=== PATIENT | male | born 1960 | race Caucasian/White ===

== ENCOUNTER 2017-03-12 00:31 | Emergency (ER) | payer MEDICAID ==
[~2017-03-12] VITALS: Ht 170.2 cm; Wt 70.6 kg
[2017-03-12 00:40] VITALS: Ht 170.2 cm; Wt 70.6 kg
--- NOTE | 2017-03-12 01:25 | ERD ---
ER Documentation Chief Complaint Chief Complaint Palpitation HPI The patient is a 56-year-old male, presenting to the ER because of palpitation and dyspnea about 20 minutes prior to arrival around 1 AM. He denies similar symptoms previously, his chest pain with exertion/vomiting/diaphoresis, abdominal pain, vomiting, dysuria, diarrhea. He does not smoke nor drink Medical history: Diabetes mellitus, dyslipidemia Past surgical history: None ROS All systems reviewed and are negative except as per history of present illness. Medications Home Meds Reported Medications Metformin* (Glucophage*) 500 Mg Tab, 500 MG PO WITH BREAKFAST DINNE, #30 TAB 03/12/17 Glipizide* (Glipizide*) 5 Mg Tablet, 5 MG PO DAILY, TAB 03/12/17 Discontinued Reported Medications [None] No Conflict Check 03/25/09 Allergies Allergies: Coded Allergies: No Known Allergy (Unverified , 03/12/17) PMhx/Soc History of Surgery: No Hx Neurological Disorder: No Hx Respiratory Disorders: No Hx Cardiac Disorders: No Hx Miscellaneous Medical Probl: No Hx Alcohol Use: No Hx Substance Use: No Hx Tobacco Use: No Physical Exam Vitals Vital Signs Date Time Temp Pulse Resp B/P Pulse Ox O2 Delivery O2 Flow Rate FiO2 03/12/17 05:16 86 16 142/85 99 Room Air 03/12/17 02:10 99 16 154/99 100 Room Air 03/12/17 00:40 98.2 100 20 188/102 99 Physical Exam Const: No acute distress. Head: Atraumatic. Eyes: Normal Conjunctiva. ENT: Normal External Ears, Nose and Mouth. Neck: Full range of motion. No meningismus. Resp: Clear to auscultation bilaterally. Cardio: Regular rate and rhythm. Abd: Soft, non distended, normal bowel sounds, non tender. Skin: No petechiae or rashes. Back: No midline or flank tenderness. Ext: No cyanosis, or edema. Neur: Awake and alert. No focal deficit Psych: Normal Mood and Affect. Result Diagram: 03/12/17 0150 03/12/17 0150 Results 24 hrs Laboratory Tests Test 03/12/17 01:50 03/12/17 05:21 White Blood Count 7.110^3/ul Red Blood Count 4.7010^6/ul Hemoglobin 14.7g/dl Hematocrit 42.0% Mean Corpuscular Volume 89.4fl Mean Corpuscular Hemoglobin 31.3pg Mean Corpuscular Hemoglobin Concent 35.0g/dl Red Cell Distribution Width 11.5% Platelet Count 52069^3/UL Mean Platelet Volume 11.5fl Neutrophils % 55.8% Lymphocytes % 34.0% Monocytes % 8.9% Eosinophils % 0.6% Basophils % 0.3% Nucleated Red Blood Cells % 0.0/100WBC Neutrophils # 3.910^3/ul Lymphocytes # 2.410^3/ul Monocytes # 0.610^3/ul Eosinophils # 0.010^3/ul Basophils # 0.010^3/ul Nucleated Red Blood Cells # 0.010^3/ul D-Dimer 320.75ng/ml D-Dimer Comment Sodium Level 132mmol/L Potassium Level 3.9mmol/L Chloride Level 92mmol/L Carbon Dioxide Level 27mmol/L Anion Gap 17 Blood Urea Nitrogen 18mg/dl Creatinine 0.92mg/dl Glucose Level 701mg/dl Calcium Level 9.5mg/dl Troponin I < 0.012ng/ml Bedside Glucose 255mg/dL Current Medications Medications (Trade) Dose Ordered Sig/Beto Route PRN Reason Start Time Stop Time Status Last Admin Dose Admin Sodium Chloride 1,000 ml @ 1,000 mls/hr Q1H ONCE IV 03/12/17 04:00 03/12/17 04:59 DC 03/12/17 04:27 Sodium Chloride (NS) 1,000 ml @ 1,000 mls/hr Q1H ONCE IV 03/12/17 04:00 03/12/17 04:59 DC 03/12/17 04:27 Insulin Human Lispro (Humalog) 22 unit ONCE ONCE SC 03/12/17 03:53 03/12/17 03:54 DC 03/12/17 04:30 Procedures/[place] [address] Radiology Main Line: [phone] DIAGNOSTIC IMAGING REPORT Patient: JAYDEN MORIN : 1960 Age: 56 Sex: M MR #: [id number] DOS: 03/12/17 0137 Ordering MD: ANTIA SOTO MD Location: E/R Room/Bed: PROCEDURE: XR Chest. CLINICAL INDICATION: Chest pain TECHNIQUE: Single frontal view of the chest COMPARISON: 03/25/2009 FINDINGS: The cardiomediastinal silhouette is within normal limits. Tortuous thoracic aorta. The lungs are clear. No signs of pleural fluid or pneumothorax are seen. The osseous structures and soft tissues are unremarkable. IMPRESSION: No evidence for active cardiopulmonary disease. RPTAT: [facility] [place] Date Time Electronically viewed and signed by Heron Pena Physician on 03/12/2017 02:13 RS/ CC: ANITA SOTO MD EKG: Read by emergency physician Rate/Rhythm: Sinus Tachycardia 112 beats/min QRS, ST, T-waves: No ST elevation, no T inversion Impression: Abnormal EKG MEDICAL MAKING DECISION: The patient is a 56-year-old male, presenting with acute diabetic hyperglycemia, he was treated with 2 L normal saline and Humalog 22 units subcu for acute diabetic hyperglycemia with good response, his blood glucose improved. He is stable for outpatient follow-up The differential diagnoses considered include but are not limited to medical noncompliance, dehydration,HHS, DKA MEDICAL MAKING DECISION: Departure Diagnosis: Primary Impression: DM type 2 with diabetic mixed hyperlipidemia Condition: Good Comments The patient's blood pressure was elevated (>120/80) but appears stable without evidence of hypertension emergency or urgency. The patient was counseled about the risks of hypertension and urged to pursue outpatient monitoring and therapy within a week with their primary care physician. I discussed the findings with the patient. I advised the patient to follow-up with the primary physician in about 1-2 days, sooner if needed and return if any concern. Disclaimer: Inadvertent spelling and grammatical errors are likely due to EHR/ dictation software use and do not reflect on the overall quality of patient care. Also, please note that the electronic time recorded on this note does not necessarily reflect the actual time of the patient encounter. ANITA SOTO MD Mar 12, 2017 01:24
--- NOTE | 2017-03-12 02:13 | RADRPT ---
PROCEDURE: XR Chest. CLINICAL INDICATION: Chest pain TECHNIQUE: Single frontal view of the chest COMPARISON: 03/25/2009 FINDINGS: The cardiomediastinal silhouette is within normal limits. Tortuous thoracic aorta. The lungs are zeyad ar. No signs of pleural fluid or pneumothorax are seen. The osseous structures and soft tissues are unremarkable. IMPRESSION: No evidence for active cardiopulmonary disease. RPTAT: [facility] [place] Date Time Electronically viewed and signed by Heron Pena Physician on 03/12/2017 02:13 RS/
[2017-03-12 02:24] LABS: BASOPHILS % 0.3 % (0.0-2.0); EOSINOPHILS % 0.6 % (0.0-7.0); HEMOGLOBIN 14.7 g/dl (14.0-18.0); LYMPHOCYTES # 2.4 10^3/ul (0.8-2.9); MEAN CORPUSCULAR HEMOGLOBIN 31.3 pg (29.0-33.0); MEAN CORPUSCULAR VOLUME 89.4 fl (82.0-101.0); MEAN PLATELET VOLUME 11.5 fl (7.4-10.4); MONOCYTE # 0.6 10^3/ul (0.3-0.9); MONOCYTES % 8.9 % (0.0-11.0); NEUTROPHIL # 3.9 10^3/ul (1.6-7.5); NEUTROPHILS % 55.8 % (39.0-77.0); PLATELET COUNT 150 10^3/UL (140-415); RED CELL DISTRIBUTION WIDTH 11.5 % (11.5-14.5); WHITE BLOOD COUNT 7.1 10^3/ul (4.8-10.8)
[2017-03-12 02:41] LABS: ANION GAP 17 (8-16); BLOOD UREA NITROGEN 18 mg/dl (7-20); CALCIUM 9.5 mg/dl (8.4-10.2); CARBON DIOXIDE 27 mmol/L (21-31); CHLORIDE 92 mmol/L (97-110); CREATININE 0.92 mg/dl (0.61-1.24); POTASSIUM 3.9 mmol/L (3.5-5.1); SODIUM 132 mmol/L (135-144)
[2017-03-12 02:43] LABS: D-DIMER 320.75 ng/ml (<460)
[2017-03-12 02:49] LABS: GLUCOSE 701 mg/dl (70-220)
[2017-03-12 02:54] LABS: TROPONIN-I < 0.012 ng/ml (0.00-0.12)
[2017-03-12] MEDS ORDERED: INSULIN LISPRO 100 UNIT/ML VIAL SC ONE (03:53)
[2017-03-12] MEDS ORDERED: SOD CHLORIDE 0.9% 1,000 ML IV ONE ×2 (04:00)
[2017-03-12] MEDS ORDERED: GLIP5TAB13 PO (04:17)
[2017-03-12] MEDS ORDERED: METF500T4 PO (04:17)
[2017-03-12 05:16] VITALS: BP 142/85; PULSE 86; RESP 16
== END 2017-03-12 05:44 | disposition home or self-care (01) ==
LOC: E/R 00:31
DX: E11.69 Type 2 diabetes mellitus with other specified complication (principal); E78.2 Mixed hyperlipidemia; Z79.84 Long term (current) use of oral hypoglycemic drugs
CPT/HCPCS: 36415; 71010; 80048; 82962; 84484; 85025; 85378; 96372; J1815; J7030; Z7502; 93005

== ENCOUNTER → 2017-04-17 | Emergency (ER) | END | disposition home or self-care (01) ==

== ENCOUNTER 2018-02-16 14:56 | Emergency (ER) | END 2018-02-16 18:47 | disposition home or self-care (01) ==

== ENCOUNTER 2018-04-15 08:36 | Emergency (ER) | payer MEDICAID ==
[~2018-04-15] VITALS: Wt 70.0 kg
[~2018-04-15 08:36] MED LIST: GLIP5TAB13 PO; METF-849 PO; RANI150T35 PO
[2018-04-15 08:39] VITALS: BP 149/76; PULSE 80; RESP 18
[2018-04-15] MEDS ORDERED: SOD CHLORIDE 0.9% 1,000 ML IV STA (09:46)
[2018-04-15] MEDS ORDERED: INSULIN LISPRO 100 UNIT/ML VIAL SC ONE (10:00)
[2018-04-15] MEDS ORDERED: MTF1000T PO (10:35)
--- NOTE | 2018-04-15 10:38 | ERD ---
ER Documentation Chief Complaint Chief Complaint per pt swelling feet/legs x 1 week HPI 57-year-old male presents with complaints of swelling in his lower extremities for the last week. Denies any history of trauma, shortness of breath, hemoptysis, syncope. Patient does walk a lot at work. Patient initially states that he did not have other medical conditions although further history later in visit shows that he has diabetes and takes Glucophage 500 mg twice a day. ROS All systems reviewed and are negative except as per history of present illness. Medications Home Meds Active Scripts Metformin* (Glucophage*) 1,000 Mg Tablet, 1000 MG PO BID, #60 TAB Prov:BRETT JOHNSON MD 04/15/18 Ranitidine Hcl* (Zantac*) 150 Mg Tablet, 150 MG PO BID PRN for EPIGASTRIC PAIN, #30 TAB Prov:RENEE CABALLERO MD 02/16/18 Glipizide* (Glipizide*) 5 Mg Tablet, 5 MG PO AC BREAKFAST, #30 TAB Prov:RENEE CABALLERO MD 02/16/18 Metformin* (Glucophage*) 500 Mg Tab, 500 MG PO BID, #60 TAB Prov:RENEE CABALLERO MD 02/16/18 Reported Medications Metformin* (Glucophage*) 500 Mg Tab, 500 MG PO WITH BREAKFAST DINNE, #30 TAB 03/12/17 Glipizide* (Glipizide*) 5 Mg Tablet, 5 MG PO DAILY, TAB 03/12/17 Allergies Allergies: Coded Allergies: No Known Allergy (Unverified , 04/15/18) PMhx/Soc Medical and Surgical Hx: pt denies Surgical Hx History of Surgery: No Anesthesia Reaction: No Hx Neurological Disorder: No Hx Respiratory Disorders: No Hx Cardiac Disorders: No Hx Psychiatric Problems: No Hx Miscellaneous Medical Probl: Yes (DM) Hx Alcohol Use: No Hx Substance Use: No Hx Tobacco Use: No Smoking Status: Never smoker FmHx Family History: No diabetes, No coronary disease, No other Physical Exam Vitals Vital Signs Date Temp Pulse Resp B/P (MAP) Pulse Ox O2 O2 Flow FiO2 Time Delivery Rate 04/15/18 98.1 80 18 149/76 99 08:39 (100) Physical Exam Const: No acute distress Head: Atraumatic Eyes: Normal Conjunctiva ENT: Normal External Ears, Nose and Mouth. Neck: Full range of motion. No meningismus. No JVD Resp: Clear to auscultation bilaterally. No rales. Cardio: Regular rate and rhythm, no murmurs Abd: Soft, non tender, non distended. Normal bowel sounds Skin: No petechiae or rashes Back: No midline or flank tenderness Ext: No cyanosis, or edema. No significant edema identified per patient chief complaint. No calf swelling or Homans sign. Neur: Awake and alert Psych: Normal Mood and Affect Result Diagram: 04/15/18 0908 04/15/18 0908 Results 24 hrs Laboratory Tests Test 04/15/18 09:08 04/15/18 10:05 White Blood Count 4.8 10^3/ul Red Blood Count 4.53 10^6/ul Hemoglobin 14.0 g/dl Hematocrit 40.6 % Mean Corpuscular Volume 89.6 fl Mean Corpuscular Hemoglobin 30.9 pg Mean Corpuscular Hemoglobin Concent 34.5 g/dl Red Cell Distribution Width 11.9 % Platelet Count 142 10^3/UL Mean Platelet Volume 11.3 fl Immature Granulocytes % 0.600 % Neutrophils % 48.4 % Lymphocytes % 42.1 % Monocytes % 7.9 % Eosinophils % 0.6 % Basophils % 0.4 % Nucleated Red Blood Cells % 0.0 /100WBC Immature Granulocytes # 0.030 10^3/ul Neutrophils # 2.3 10^3/ul Lymphocytes # 2.0 10^3/ul Monocytes # 0.4 10^3/ul Eosinophils # 0.0 10^3/ul Basophils # 0.0 10^3/ul Nucleated Red Blood Cells # 0.0 10^3/ul Sodium Level 137 mmol/L Potassium Level 4.3 mmol/L Chloride Level 97 mmol/L Carbon Dioxide Level 28 mmol/L Anion Gap 12 Blood Urea Nitrogen 15 mg/dl Creatinine 0.74 mg/dl Est Glomerular Filtrat Rate mL/min > 60 mL/min Glucose Level 463 mg/dl Calcium Level 9.3 mg/dl Total Bilirubin 0.4 mg/dl Direct Bilirubin 0.00 mg/dl Indirect Bilirubin 0.4 mg/dl Aspartate Amino Transf (AST/SGOT) 23 IU/L Alanine Aminotransferase (ALT/SGPT) 31 IU/L Alkaline Phosphatase 155 IU/L B-Type Natriuretic Peptide 90 PG/ML Total Protein 6.8 g/dl Albumin 4.0 g/dl Globulin 2.80 g/dl Albumin/Globulin Ratio 1.42 Bedside Glucose 434 mg/dL Current Medications Medications Dose Sig/Beto Start Time Status Last (Trade) Ordered Route PRN Stop Time Admin Dose Reason Admin Sodium 1,000 ml @ Q1H STAT 04/15/18 DC 04/15/18 Chloride 1,000 mls/hr IV 09:46 10:05 04/15/18 10:45 Insulin 8 unit ONCE ONCE 04/15/18 DC 04/15/18 Human SC 10:00 10:07 Lispro 04/15/18 10:01 (Humalog) Procedures/MDM CBC and CMP showed no acute findings except for elevated glucose of 463. Bicarb is normal. Urine shows no ketones acute abnormalities. Patient was given 8 units Humalog subcutaneously and 1 L normal saline IV. Patient presents with complaints of lower extremity swelling without significant clinical findings. No evidence of DVT no evidence of ketoacidosis, CHF, chest pain, ischemia, deficits, cellulitis, sepsis. He will be discharged home with increasing his Glucophage to 1 g twice a day, primary care follow-up and return precautions. Is otherwise advised to elevate extremities and return for new or worsening symptoms as directed. EKG: Rate/Rhythm: Normal Sinus Rhythm. Rate equals 76 QRS, ST, T-waves: No changes consistent w/ acute ischemia Impression: No evidence of ischemia or arrhythmia Chest X-ray 1V Interpreted by me: Soft Tissue: No acute abnormalities Bones: No acute abnormalities Mediastinum/Cardiac Silhouette/Lungs: No acute abnormalities impression-normal 1 view chest x-ray The patient's blood pressure was elevated (>120/80) but appears stable without evidence of hypertension emergency or urgency. The patient was counseled about the risks of hypertension and urged to pursue outpatient monitoring and therapy within a week with their primary care physician. I discussed the findings with the patient. I advised the patient to follow-up with the primary physician in about 1-2 days, sooner if needed and return if any concern. Departure Diagnosis: Primary Impression: Pedal edema Additional Impression: Hyperglycemia Condition: Stable Patient Instructions: Hyperglycemia (High Blood Sugar) Additional Instructions: Examines normal hoy. solo tucker azucar esta arriba. Cheque otro vez con tucker doctor primario en el proximo dorado or regresa para mas o nueva simptomas. BRETT JOHNSON MD Apr 15, 2018 10:38
== END 2018-04-15 10:46 | disposition home or self-care (01) ==
LOC: FTE 08:36
DX: R22.41 Localized swelling, mass and lump, right lower limb (principal); E11.65 Type 2 diabetes mellitus with hyperglycemia; R22.42 Localized swelling, mass and lump, left lower limb; R07.9 Chest pain, unspecified; Z79.4 Long term (current) use of insulin
CPT/HCPCS: 36415; 71045; 80053; 82962; 83880; 85025; 96372; J1815; J7030; Z7502; 93005

== ENCOUNTER 2018-07-04 01:28 | Observation (INO) | payer MEDICAID ==
[~2018-07-04] VITALS: Ht 167.6 cm; Wt 65.0 kg
[2018-07-04] VITALS (10 sets, daily range): BP systolic 117–142; BP diastolic 71–86; PULSE 71–89; RESP 18–84; Ht 167.6 cm; Wt 65.0 kg
[~2018-07-04 01:28] MED LIST changes: +MTF1000T PO
[2018-07-04] MEDS ORDERED: SOD CHLORIDE 0.9% 500 ML IV STA (02:46)
--- NOTE | 2018-07-04 05:53 | ERD ---
ER Documentation Chief Complaint Chief Complaint dizziness X1 week, HPI Is a 58-year-old male said he is on and off felt like passing out for the past week. Denies fevers chills nausea vomiting. Denies any other current complaints. Per the patient, he is also had weight loss over the past month and, has been generally unwell. Patient states he lives alone 1 directly questions. Denies suicidal homicidal ideation. ROS All systems reviewed and are negative except as per history of present illness. Medications Home Meds Active Scripts Metformin* (Glucophage*) 1,000 Mg Tablet, 1000 MG PO BID, #60 TAB Prov:BRETT JOHNSON MD 04/15/18 Ranitidine Hcl* (Zantac*) 150 Mg Tablet, 150 MG PO BID PRN for EPIGASTRIC PAIN, #30 TAB Prov:RENEE CABALLERO MD 02/16/18 Glipizide* (Glipizide*) 5 Mg Tablet, 5 MG PO AC BREAKFAST, #30 TAB Prov:RENEE CABALLERO MD 02/16/18 Metformin* (Glucophage*) 500 Mg Tab, 500 MG PO BID, #60 TAB Prov:RENEE CABALLERO MD 02/16/18 Reported Medications Metformin* (Glucophage*) 500 Mg Tab, 500 MG PO WITH BREAKFAST DINNE, #30 TAB 03/12/17 Glipizide* (Glipizide*) 5 Mg Tablet, 5 MG PO DAILY, TAB 03/12/17 Allergies Allergies: Coded Allergies: No Known Allergy (Unverified , 04/15/18) PMhx/Soc History of Surgery: No Anesthesia Reaction: No Hx Neurological Disorder: No Hx Respiratory Disorders: No Hx Cardiac Disorders: No Hx Psychiatric Problems: No Hx Miscellaneous Medical Probl: Yes (DM) Hx Alcohol Use: No Hx Substance Use: No Hx Tobacco Use: No Smoking Status: Never smoker Physical Exam Vitals Vital Signs Date Temp Pulse Resp B/P (MAP) Pulse Ox O2 O2 Flow FiO2 Time Delivery Rate 07/04/18 97.0 92 18 142/91 98 Room Air 02:59 (108) 07/04/18 97.0 95 18 162/88 98 01:31 (112) Physical Exam Const: No acute distress Head: Atraumatic Eyes: Normal Conjunctiva ENT: Normal External Ears, Nose and Mouth. Neck: Full range of motion. No meningismus. Resp: Clear to auscultation bilaterally Cardio: Regular rate and rhythm, no murmurs Abd: Soft, non tender, non distended. Normal bowel sounds Skin: No petechiae or rashes Back: No midline or flank tenderness Ext: No cyanosis, or edema Neur: Awake and alert Psych: Normal Mood and Affect Result Diagram: 07/04/18 0300 07/04/18 0300 Results 24 hrs Laboratory Tests Test 07/04/18 02:57 07/04/18 03:00 Bedside Glucose 349 mg/dL White Blood Count 7.1 10^3/ul Red Blood Count 4.96 10^6/ul Hemoglobin 15.5 g/dl Hematocrit 44.4 % Mean Corpuscular Volume 89.5 fl Mean Corpuscular Hemoglobin 31.3 pg Mean Corpuscular Hemoglobin Concent 34.9 g/dl Red Cell Distribution Width 11.9 % Platelet Count 162 10^3/UL Mean Platelet Volume 11.3 fl Immature Granulocytes % 0.100 % Neutrophils % 53.4 % Lymphocytes % 37.1 % Monocytes % 8.4 % Eosinophils % 0.7 % Basophils % 0.3 % Nucleated Red Blood Cells % 0.0 /100WBC Immature Granulocytes # 0.010 10^3/ul Neutrophils # 3.8 10^3/ul Lymphocytes # 2.6 10^3/ul Monocytes # 0.6 10^3/ul Eosinophils # 0.1 10^3/ul Basophils # 0.0 10^3/ul Nucleated Red Blood Cells # 0.0 10^3/ul Prothrombin Time 11.7 Sec Prothrombin Time Ratio 0.9 INR International Normalized Ratio 0.85 Activated Partial Thromboplast Time 24.2 Sec Sodium Level 137 mmol/L Potassium Level 4.2 mmol/L Chloride Level 100 mmol/L Carbon Dioxide Level 29 mmol/L Anion Gap 8 Blood Urea Nitrogen 21 mg/dl Creatinine 0.86 mg/dl Est Glomerular Filtrat Rate mL/min > 60 mL/min Glucose Level 382 mg/dl Calcium Level 10.0 mg/dl Troponin I < 0.012 ng/ml Current Medications Medications Dose Sig/Beto Start Time Status Last (Trade) Ordered Route PRN Stop Time Admin Dose Reason Admin Sodium 500 ml @ Q1H STAT 07/04/18 DC 07/04/18 Chloride 500 mls/hr IV 02:46 02:46 07/04/18 03:45 Procedures/MDM EKG: Rate/Rhythm: [Normal Sinus Rhythm] QRS, ST, T-waves: [No changes consistent w/ acute ischemia] Impression: [No evidence of ischemia or arrhythmia] Chest X-ray 1V Interpreted by me: Soft Tissue: No acute abnormalities Bones: No acute abnormalities Mediastinum/Cardiac Silhouette/Lungs: [No acute abnormalities] Medical decision making: Very pleasant patient comes in with possible near syncopal event. At this point clinically stable, however I feel it is be admitted for further evaluation and management. I discussed the case with Dr. Blackman is on-call. Patient will be admitted to Dr. Blackman. Departure Diagnosis: Primary Impression: Dizziness Additional Impression: Hyperglycemia Condition: Serious ANTHONY KELLEY Jul 04, 2018 05:53
[2018-07-04] MEDS ORDERED: ACETAMINOPHEN 325 MG TAB PO PRN (06:00)
[2018-07-04] MEDS ORDERED: BISACODYL (EC) 5 MG TAB PO PRN (06:00)
[2018-07-04] MEDS ORDERED: ONDANSETRON 4 MG INJ IV PRN (06:00)
[2018-07-04] MEDS ORDERED: NACL 0.9% 3 ML SYG IV SCH (06:00)
[2018-07-04] MEDS ORDERED: RANITIDINE 150 MG TAB PO PRN (06:00)
[2018-07-04] MEDS ORDERED: DOCUSATE SODIUM 100 MG CAP PO PRN (06:00)
--- NOTE | 2018-07-04 07:10 | HP ---
Date/Time of Note Date/Time of Note DATE: 07/04/18 TIME: 07:03 Assessment/Plan VTE Prophylaxis SCD applied (from Nsg): Yes Pharmacological prophylaxis: NA/contraindicated Pharm contraindication: low risk/ambulating Lines/Catheters IV Catheter Type (from Nrsg): Saline Lock Assessment/Plan Hospital Course This is a 58-year-old male being admitted to the for: #1 near syncope: Possibly secondary to hyperglycemia. Patient denies syncope/loss of consciousness. Will check an echocardiogram. Will monitor patient's blood sugars, will check hemoglobin A1c. Insulin sliding scale. Orthostatics. EKG is nonischemic. #2 uncontrolled diabetes mellitus: Patient's blood sugars were in the 300s upon admission. Will check hemoglobin A 1C, insulin sliding scale. I will initiate him on Lantus weight-based dose of the current time as I suspect that he may need insulin added to his regimen. Will hold home oral medications at the current time. #3 weight loss: Possibly secondary to uncontrolled blood sugars. Hemoglobin at the current time is stable, will check stool occult blood. Chest x-ray does not show any nodules or any other abnormalities. #4 hypertension: We will need to confirm patient's home blood pressure medication, monitor blood pressures #4 DVT GI prophylaxis: SCDs, home H2 susan Further treatment strategy will be implemented as per the clinical course. Result Diagram: 07/04/18 0300 07/04/18 0300 Results 24hrs Laboratory Tests Test 07/04/18 02:57 07/04/18 03:00 Bedside Glucose 349 H White Blood Count 7.1 # Red Blood Count 4.96 Hemoglobin 15.5 Hematocrit 44.4 Mean Corpuscular Volume 89.5 Mean Corpuscular Hemoglobin 31.3 Mean Corpuscular Hemoglobin Concent 34.9 Red Cell Distribution Width 11.9 Platelet Count 162 Mean Platelet Volume 11.3 H Immature Granulocytes % 0.100 Neutrophils % 53.4 Lymphocytes % 37.1 Monocytes % 8.4 Eosinophils % 0.7 Basophils % 0.3 Nucleated Red Blood Cells % 0.0 Immature Granulocytes # 0.010 Neutrophils # 3.8 Lymphocytes # 2.6 Monocytes # 0.6 Eosinophils # 0.1 Basophils # 0.0 Nucleated Red Blood Cells # 0.0 Prothrombin Time 11.7 L Prothrombin Time Ratio 0.9 INR International Normalized Ratio 0.85 Activated Partial Thromboplast Time 24.2 Sodium Level 137 Potassium Level 4.2 Chloride Level 100 Carbon Dioxide Level 29 Anion Gap 8 Blood Urea Nitrogen 21 H Creatinine 0.86 Est Glomerular Filtrat Rate mL/min > 60 Glucose Level 382 H Calcium Level 10.0 Troponin I < 0.012 HPI/ROS Admit Date/Time Admit Date/Time Hx of Present Illness Chief complaint: Dizziness times 2 days This is a 58-year-old male with a past medical history of high blood pressure and diabetes mellitus who presents to the emergency department with complaints of dizziness times 2 days. Patient denies any loss of consciousness or falls. He denies any excessive urination. He states that he is compliant with medications. He denies any chest pain nausea vomiting or shortness of breath or diarrhea. Patient also reports unspecified weight loss for the last 1 month. Allergies: NKDA Medications: See TOM FORD Const: As per HPI ENT: No pain, sore throat, congestion, congestion, dysphagia or discharge Respiratory: No shortness of breath, cough, sputum, wheezing, or pleuritic pain Cardiovascular: No chest pain, palpitation, PND, or edema GI : no change in appetite, abdominal pain, nausea, vomiting, diarrhea, constipation, or change in the color his stool Genitourinary: No dysuria, hematuria, flank pain , discharge or CVA tenderness Musculoskeletal: No joint pain, back pain, neck pain, restricted range of motion in neck or joints Skin: No rash, bruising or hives Neuro: As per HPI Endocrine: No polyuria, polydipsia, temperature intolerance Psych: No hallucination, depression, anxiety or suicidal ideation PMH/Family/Social Past Medical History Diabetes mellitus, hypertension Medications Current Medications Ranitidine HCl (Zantac) 150 mg BID PRN PO EPIGASTRIC PAIN; Start 07/04/18 at 06:00 IV Flush (NS 3 ml) 3 ml PER PROTOCOL IV ; Start 07/04/18 at 06:00 Ondansetron HCl (Zofran Inj) 4 mg Q6H PRN IV NAUSEA/VOMITING; Start 07/04/18 at 06:00 Acetaminophen (Tylenol Tab) 650 mg Q6H PRN PO .PAIN 1-3 OR TEMP; Start 07/04/18 at 06:00 Docusate Sodium (Colace) 100 mg Q12H PRN PO .CONSTIPATION; Start 07/04/18 at 06:00 Bisacodyl (Dulcolax) 5 mg DAILY PRN PO .CONSTIPATION; Start 07/04/18 at 06:00 Coded Allergies: No Known Allergy (Unverified , 04/15/18) Past Surgical History Past Surgical Hx: no surgical history Family History Significant Family History: no pertinent family hx Social History Alcohol Use: none Smoking Status: Never smoker Drug Use: none Exam/Review of Systems Vital Signs Vitals Vital Signs Date Temp Pulse Resp B/P (MAP) Pulse Ox O2 O2 Flow FiO2 Time Delivery Rate 07/04/18 73 17 122/88 98 Room Air 05:45 (99) 07/04/18 97.0 02:59 Exam Exam General: Patient is a pleasant male currently lying in bed in no acute distress HEENT: Atraumatic, normocephalic. The pupils are equal, round and reactive. Extraocular motor are intact, mild dry mucous membranes Neck: Supple with full range of motion. No rigidity or meningismus Chest: Nontender Lungs: Clear to auscultation bilaterally no crackles rales or wheezing Heart: Normal S1-S2, Regular rhythm and rate. No murmur, S3, or S4 Abdomen: Soft , nontender, nondistended , bowel sounds are present. No guarding no rebound tenderness , No masses or organomegaly. No costovertebral temporal angle mass Extremities: Normal to inspection, no edema no cyanosis Neurologic: Normal mental status, speech normal, cranial nerves II through XII are intact, motor and sensory are intact, Additional Comments EKG: Normal sinus rhythm at approximately 87 bpm, no ST or T wave abnormalities concerning for acute ischemiaPROCEDURE: CT BRAIN WITHOUT CONTRAST CLINICAL INDICATION: 58-year-old male with syncope. TECHNIQUE: The study was performed utilizing [employer] VCT 64-slice CT scanner. Direct axial sections were obtained from the foramen magnum to the vertex without the use of intravenous contrast material. Sagittal and coronal reformations were obtained. One or more the following dose reduction techniques were utilized: automated exposure control, adjustment of the mA and/or kV according to patient's size and/or use of iterative reconstruction technique. DICOM images are available. The images were viewed on a PACS workstation. CTD/vol = 39.64 mGy; Total Exam DLP = 634.23 mGy.cm. COMPARISON: None. FINDINGS: There is mild prominence of the sulci and cisternal spaces consistent with diffuse volume loss. Otherwise, the ventricles have a normal shape and position. There is no evidence for mass effect or midline shift. There are focal calcifications along the anterior falx. There is no evidence for acute intra or extra-axial blood. The bony calvarium is intact. The partially visualized paranasal sinuses and mastoid air cells are without significant abnormal soft tissue. IMPRESSION: Mild diffuse volume loss. .Simone Mo MD, Date Time Electronically viewed and signed by .Simone Mo MD, on 07/04/2018 04:15 .M/ CC: ANTHONY KELLEY [phone] PROCEDURE: XR Chest. CLINICAL INDICATION: Syncope TECHNIQUE: AP Portable chest. COMPARISON: DR CHEST 04/15/2018; DR CHEST 03/12/2017; FINDINGS: The cardiomediastinal silhouette is normal. The aorta is calcified and tortuous. No focal consolidation, pleural effusion or pneumothorax is seen. The osseous structures are intact. IMPRESSION: No radiographic evidence of acute cardiopulmonary disease. Aortic atherosclerosis. [facility] Physician Corina Date Time Electronically viewed and signed by Physician Corina on 07/04/2018 03:24 CS/ CC: ANTHONY KELLEY [phone] [place] Jul 04, 2018 07:10
[2018-07-04] MEDS ORDERED: DEXTROSE 50% 50 ML SYRINGE IV PRN ×2 (07:30)
[2018-07-04] MEDS ORDERED: GLUCOSE GEL 15 GRAM TUBE BUCCAL PRN (07:30)
[2018-07-04] MEDS ORDERED: GLUCAGON 1 MG INJ IM PRN (07:30)
[2018-07-04] MEDS ORDERED: GLUCOSE GEL 15 GRAM TUBE PO PRN ×2 (07:30)
[2018-07-04] MEDS ORDERED: INSULIN GLARGINE [LANTus] (100 UNITS/ML) SYG SC SCH (08:00)
[2018-07-04] MEDS: INSULIN ASPART [NOVOLOG] 3 ML PEN SC SCH ×6 (09:07→20:39)
[2018-07-04] MEDS: ASPIRIN 81 MG TAB PO SCH (13:44)
[2018-07-04] MEDS ORDERED: INSULIN GLARGINE [LANTus] (100 UNITS/ML) SYG SC ONE (14:00)
--- NOTE | 2018-07-04 15:01 | QN ---
Documentation Comment 58-year-old male with diabetes, hypertension, admitted with near syncopal episode. Brain CT unremarkable. Go ahead and obtain carotid ultrasound and rule out ACS with 3 sets of troponin. Also obtain orthostatic vital signs. Currently patient is symptomatic. Most likely this is secondary to blood pressure variance and possible hypoglycemic events. Currently blood sugar is trending up and will start patient on Lantus, pre-meal insulin. Will follow-up in a.m. and if no further symptoms, DC planning with outpatient follow-up. PT checo Case discussed with Dr. Fuentes. NAIMA ANTONIO NP Jul 04, 2018 15:01
--- NOTE | 2018-07-04 19:47 | RADRPT ---
Echocardiogram Report Patient Name: JAYDEN MORINPatient ID: [id number] : 1960 (58y 3m)Study Date: 07/04/2018 7:06:37 AM Gender: MAccession #: [id number] Tech: Zuhair Goodson RDCS [facility] Ref.Physician: [place] Height(Cm): BSA: Weight(Kg): Quality: AdequateAccount #: Procedures: Echocardiographic Report: Transthoracic echocardiogram with complete 2D, M-Mode, and doppler examination. Indications: near Syncope. Measurements: 2D/M Mode Doppler Measurement Value Normal Range Measurement Value Normal Range LVIDd 2D 4.6 [ 4.2 - 5.8 ] cm AV Peak Emanuel 1.1 [ 100.0 - 170.0 ] cm/sec LVIDs 2D 3.0 [ 2.5 - 4.0 ] cm AV Peak PG 4.0 [ 2.0 - 9.0 ] mmHg LVPWd 2D 0.9 [ 0.6 - 1.0 ] cm LVOT Peak Emanuel 0.8 [ 70.0 - 110.0 ] cm/sec IVSd 2D 1.0 [ 0.6 - 1.0 ] cm LVOT Peak PG 2.0 [ 2.0 - 6.0 ] mmHg AoR Diam 2D 3.1 [ 2.6 - 3.4 ] cm MV E Peak Emanuel 0.5 [ 60.0 - 130.0 ] cm/sec EDV 2D 97.8 [ 62.0 - 150.0 ] ml MV A Peak Emanuel 0.6 [ 100.0 - 120.0 ] cm/sec ESV 2D 36.2 [ 21.0 - 61.0 ] ml MV E/A 0.9 [ 0.8 - 1.5 ] ratio EF 2D 63.0 [ 52.0 - 72.0 ] percent MV Decel Time 229 [ 104 - 258 ] msec LA Dimen 2D 2.9 [ 3.0 - 4.0 ] cm Lat E` Emanuel 0.1 [ 10.0 - 15.0 ] cm/sec Lateral E/E` 4.9 [ 1.0 - 2.0 ] ratio MV E/A 0.9 [ 0.8 - 1.5 ] ratio TR Peak Emanuel 2.1 [ 100.0 - 280.0 ] cm/sec TR Peak PG 18.0 mmHg RVSP 28.0 [ 10.0 - 36.0 ] mmHg RA Pressure 10.0 mmHg Findings: Left Ventricle: Normal left ventricular systolic function. Normal left ventricular cavity size. Normal left ventricular wall thickness. Ejection fraction is visually estimated at 55 %. Tissue Doppler/Mitral Doppler indices are consistent with impaired relaxation (Stage I diastolic dysfunction). Right Ventricle: Normal right ventricular size. Normal right ventricular systolic function. Left Atrium: The left atrium is normal in size. Right Atrium: The right atrium is normal in size. Mitral Valve: Normal appearance and function of the mitral valve with trace physiologic regurgitation. Aortic Valve: Normal appearance of the aortic valve. No significant aortic stenosis or insufficiency. Tricuspid Valve: Normal appearance of the tricuspid valve. Estimated peak PA systolic pressure 28 mmHg. There is trace tricuspid regurgitation. Pulmonic Valve: Pulmonic valve not well visualized. Pericardium: Normal pericardium with no significant pericardial effusion. Aorta: Normal aortic root. IVC: Normal size and normal respiratory collapse consistent with normal right atrial pressure. Conclusions: Normal left ventricular systolic function. Normal left ventricular cavity size. Normal left ventricular wall thickness. Ejection fraction is visually estimated at 55 %. Tissue Doppler/Mitral Doppler indices are consistent with impaired relaxation (Stage I diastolic dysfunction). Normal appearance and function of the mitral valve with trace physiologic regurgitation. Normal appearance of the aortic valve. No significant aortic stenosis or insufficiency. Normal appearance of the tricuspid valve. Estimated peak PA systolic pressure 28 mmHg. There is trace tricuspid regurgitation. Electronically Signed By: Geovany Hurst 2018-07-04 19:46:16 PDT
[2018-07-05] VITALS (12 sets, daily range): BP systolic 115–126; BP diastolic 75–83; PULSE 69–117; RESP 12–19
[2018-07-05] MEDS ORDERED: ACCU-CHEK XX SCH (02:00)
[2018-07-05] MEDS ORDERED: INSULIN GLARGINE [LANTus] (100 UNITS/ML) SYG SC SCH (08:00)
[2018-07-05] MEDS: INSULIN ASPART [NOVOLOG] 3 ML PEN SC SCH ×6 (08:03→17:22)
[2018-07-05] MEDS: ASPIRIN 81 MG TAB PO SCH (08:06)
--- NOTE | 2018-07-05 11:42 | PDOCDIS ---
Discharge Instructions CONDITION [id number] Patient Condition: [id number] Stable HOME CARE INSTRUCTIONS: [id number] Your diet recommendation is: [id number] carbohydrate-controlled FOLLOW UP/APPOINTMENTS Follow-up Plan Follow-up with primary care physician in 1 week NAIMA ANTONIO NP Jul 05, 2018 11:42
[2018-07-05] MEDS ORDERED: MTF1000T PO (11:50)
[2018-07-05] MEDS ORDERED: INSU100I33 SC (11:50)
[2018-07-05] MEDS ORDERED: INSU100I12 SQ (11:50)
--- NOTE | 2018-07-05 11:59 | DS ---
Date/Time of Note Date/Time of Note DATE: 07/05/18 TIME: 11:56 Discharge Summary Admission/Discharge Info Admit Date/Time Jul 04, 2018 at 05:47 Discharge Date/Time Discharge Diagnosis 1. Dizziness, likely dehydration secondary to polyuria. No acute abnormalit ies. 2. Poorly controlled diabetes Patient Condition: Stable Procedures 07/04/2018. Carotid ultrasound. IMPRESSION: 1. No evidence of a significant stenosis of the right internal carotid artery. 2. No evidence of a significant stenosis of the left internal carotid artery. 3. Normal antegrade flow in the vertebral arteries bilaterally. Measurement of carotid stenosis is based on peak systolic and diastolic velocity parameters that correlate to the residual internal carotid diameter with [place] Symptomatic Carotid Endarterectomy Trial (NASCET) based stenosis levels. Normal ( < 50% ) - ICA peak systolic velocity < 125 cm/sec, ICA / CCA ratio < 2.0 Moderate stenosis ( 50 - 69% ) - ICA peak systolic velocity 125 - 230 cm/sec, ICA / CCA ratio 2.0 - 4.0 Severe stenosis ( >70% ) - ICA peak systolic velocity > 230 cm/sec, ICA / CCA ratio > 4.0 07/04/2018. Brain CT. IMPRESSION: Mild diffuse volume loss. 07/04/2018.2D echocardiogram. Conclusions: Normal left ventricular systolic function. Normal left ventricular cavity size. Normal left ventricular wall thickness. Ejection fraction is visually estimated at 55 %. Tissue Doppler/Mitral Doppler indices are consistent with impaired relaxation (Stage I diastolic dysfunction). Normal appearance and function of the mitral valve with trace physiologic regurgitation. Normal appearance of the aortic valve. No significant aortic stenosis or insufficiency. Normal appearance of the tricuspid valve. Estimated peak PA systolic pressure 28 mmHg. There is trace tricuspid regurgitation. Electronically Signed By: Geovany Hurst 2018-07-04 19:46:16 PDT Hospital Course 58-year-old male with diabetes, hypertension, admitted with dizziness and polyuria, found to have poorly controlled diabetes. Patient was ruled out for acute coronary syndrome, neurovascular events to explain dizziness. Most likely this is secondary to excessive urination and dehydration. Patient was noted with poorly managed diabetes with A1c 13.7. His blood sugar also remained consistently elevated. At this time, patient would most benefit from insulin therapy as outpatient. He did not have any further symptoms. Tolerating diet and activities well. Stable for outpatient follow- up. farm mortgage agent to be seen prior discharged to provide patient with glucometer and insulin instructions. Approximately 60 m spent on coordinating the discharge on this patient. Patient was seen in collaboration with Dr. Fuentes. Home Meds Active Scripts Metformin* (Glucophage*) 1,000 Mg Tablet, 1000 MG PO WITH BREAKFAST DINNE, #60 TAB Prov:ANTONIO,NAIMA V. IRRIGATIONIST 07/05/18 Insulin Lispro (Humalog Kwikpen U-100) 100 Unit/1 Ml Insuln.pen, 7 UNIT SQ TIDM A, #1 EA PROVIDE #100 FREE STYLE TEST STRIPS #100 LANCETS #100 32 GAUGE INSULIN PEN NEEDES CHECK BLOOD SUGAR AC MEALS AND AT BED TIME GLUCOMETER#1 Prov:ANTONIO,NAIMA V. IRRIGATIONIST 07/05/18 Insulin Glargine,Hum.rec.anlog (Basaglar Kwikpen U-100) 100 Unit/1 Ml Insuln.pen, 20 UNIT SC .HS, #1 EA Prov:ANTONIO,NAIMA V. IRRIGATIONIST 07/05/18 Ranitidine Hcl* (Zantac*) 150 Mg Tablet, 150 MG PO BID PRN for EPIGASTRIC PAIN, #30 TAB Prov:RENEE CABALLERO MD 02/16/18 Discontinued Reported Medications Metformin* (Glucophage*) 500 Mg Tab, 500 MG PO WITH BREAKFAST DINNE, #30 TAB 03/12/17 Glipizide* (Glipizide*) 5 Mg Tablet, 5 MG PO DAILY, TAB 03/12/17 Discontinued Scripts Metformin* (Glucophage*) 1,000 Mg Tablet, 1000 MG PO BID, #60 TAB Prov:BRETT JOHNSON MD 04/15/18 Glipizide* (Glipizide*) 5 Mg Tablet, 5 MG PO AC BREAKFAST, #30 TAB Prov:RENEE CABALLERO MD 02/16/18 Metformin* (Glucophage*) 500 Mg Tab, 500 MG PO BID, #60 TAB Prov:RENEE CABALLERO MD 02/16/18 Follow-up Plan Follow-up with primary care physician in 1 week Primary Care Provider Care Physician No Primary Pending Labs Laboratory Tests Test 07/04/18 14:20 07/04/18 17:17 07/04/18 18:44 07/04/18 20:26 Creatine 51 50 Kinase IU/L (23-200) IU/L (23-200) Creatine Kinase 1.0 1.1 Index Creatinine 0.51 0.53 Kinase MB ng/ml (0.0-2.4) ng/ml (0.0-2.4 (Mass) ) Troponin I < 0.012 < 0.012 ng/ml (0.000-0. ng/ml (0.000-0 120) .120) Bedside 145 133 Glucose mg/dL (70-220) mg/dL (70-220) Test 07/05/18 06:04 07/05/18 07:51 07/05/18 11:45 White Blood 6.2 Count 10^3/ul (4.8-10 .8) Red Blood 5.04 Count 10^6/ul (4.70-6 .10) Hemoglobin 15.6 g/dl (14.0-18.0 ) Hematocrit 45.3 % (42.0-52.0) Mean 89.9 Corpuscular fl (82.0-101.0) Volume Mean 31.0 Corpuscular pg (29.0-33.0) Hemoglobin Mean 34.4 Corpuscular g/dl (32.0-37.0 Hemoglobin Conc ) ent Red Cell 11.9 Distribution % (11.5-14.5) Width Platelet Count 156 10^3/UL (140-41 5) Mean Platelet 11.4 Volume fl (7.4-10.4) Immature 0.200 Granulocytes % % (0.001-0.429) Neutrophils % 50.9 % (39.0-77.0) Lymphocytes % 39.5 % (15.0-51.0) Monocytes % 7.8 % (0.0-11.0) Eosinophils % 1.3 % (0.0-7.0) Basophils % 0.3 % (0.0-2.0) Nucleated Red 0.0 Blood Cells % /100WBC (0.0-0. 0) Immature 0.010 Granulocytes # 10^3/ul (0.0-0. 031) Neutrophils # 3.1 10^3/ul (1.6-7. 5) Lymphocytes # 2.4 10^3/ul (0.8-2. 9) Monocytes # 0.5 10^3/ul (0.3-0. 9) Eosinophils # 0.1 10^3/ul (0.0-0. 5) Basophils # 0.0 10^3/ul (0.0-0. 1) Nucleated Red 0.0 Blood Cells # 10^3/ul (0.0-0. 0) Sodium Level 137 mmol/L (135-144 ) Potassium 4.2 Level mmol/L (3.5-5.1 ) Chloride Level 98 mmol/L (97-110) Carbon Dioxide 30 Level mmol/L (21-31) Anion Gap 9 (5-13) Blood Urea 19 mg/dl (7-20) Nitrogen Creatinine 0.75 mg/dl (0.61-1.2 4) Est Glomerular > 60 Filtrat mL/min (>60) Rate mL/min Glucose Level 257 mg/dl (70-220) Calcium Level 9.3 mg/dl (8.4-10.2 ) Total 0.5 Bilirubin mg/dl (0.2-1.3) Direct 0.00 Bilirubin mg/dl (0.00-0.2 0) Indirect 0.5 Bilirubin mg/dl (0-1.1) Aspartate Amino 19 IU/L (15-46) Transf (AST/SGO T) Alanine 25 IU/L (13-69) Aminotransferas e (ALT/SGPT) Alkaline 118 Phosphatase IU/L (42-121) Total Protein 6.8 g/dl (6.1-8.1) Albumin 3.8 g/dl (3.3-4.9) Globulin 3.00 g/dl (1.3-3.2) Albumin/Globuli 1.26 n Ratio Bedside 213 221 Glucose mg/dL (70-220) mg/dL (70-220) NAIMA ANTONIO V. IRRIGATIONIST Jul 05, 2018 11:59
== END 2018-07-05 17:54 | disposition home health service (06) ==
LOC: E/R 01:28 → TEL 05:47
PROVIDERS: ADMIT Family Medicine; ATTEND Family Medicine
DX: R55 Syncope and collapse (principal); E11.65 Type 2 diabetes mellitus with hyperglycemia; I10 Essential (primary) hypertension; Z79.84 Long term (current) use of oral hypoglycemic drugs
CPT/HCPCS: 70450; 71045; 80048; 80053; 80061; 82550; 82553; 82962; 83036; 83735; 84443; 84484; 85025; 85610; 85730; 93005; 93306; 93880; 97161; J1815; J7040; Z7500; Z7610; 36415; G0378

== ENCOUNTER 2018-09-04 02:53 | Emergency (ER) | payer SELFPAY ==
[~2018-09-04] VITALS: Ht 175.3 cm; Wt 69.0 kg
[~2018-09-04 02:53] MED LIST changes: -GLIP5TAB13 PO; +INSU100I12 SQ; +INSU100I33 SC; -METF-849 PO
[2018-09-04 02:57] VITALS: BP 164/94; PULSE 69; RESP 18; Ht 175.3 cm; Wt 69.0 kg
== END 2018-09-04 05:01 | disposition left against medical advice (07) ==
LOC: FTE 02:53
DX: Z53.21 Procedure and treatment not carried out due to patient leaving prior to being seen by health care provider (principal)
CPT/HCPCS: 82962

== ENCOUNTER 2018-09-18 11:19 | Emergency (ER) | payer SELFPAY ==
[~2018-09-18] VITALS: Ht 172.7 cm; Wt 66.3 kg
[2018-09-18 11:34] VITALS: BP 143/82; PULSE 110; RESP 18; Ht 172.7 cm; Wt 66.3 kg
--- NOTE | 2018-09-18 14:14 | ERD ---
ER Documentation Chief Complaint Chief Complaint sent from clinic blood sugar high, given SQ insulin BS 329 now ROS All systems reviewed and are negative except as per history of present illness. Medications Home Meds Active Scripts Metformin* (Glucophage*) 1,000 Mg Tablet, 1000 MG PO WITH BREAKFAST DINNE, #60 TAB Prov:ANTONIO,NAIMA V. BABYSITTER 07/05/18 Insulin Lispro (Humalog Kwikpen U-100) 100 Unit/1 Ml Insuln.pen, 7 UNIT SQ TIDM A, #1 EA PROVIDE #100 FREE STYLE TEST STRIPS #100 LANCETS #100 32 GAUGE INSULIN PEN NEEDES CHECK BLOOD SUGAR AC MEALS AND AT BED TIME GLUCOMETER#1 Prov:ANTONIO,NAIMA V. BABYSITTER 07/05/18 Insulin Glargine,Hum.rec.anlog (Basaglar Kwikpen U-100) 100 Unit/1 Ml Insuln.pen, 20 UNIT SC .HS, #1 EA Prov:ANTONIO,NAIMA V. BABYSITTER 07/05/18 Ranitidine Hcl* (Zantac*) 150 Mg Tablet, 150 MG PO BID PRN for EPIGASTRIC PAIN, #30 TAB Prov:RENEE CABALLERO MD 02/16/18 Allergies Allergies: Coded Allergies: No Known Allergy (Unverified , 04/15/18) PMhx/Soc History of Surgery: No Anesthesia Reaction: No Hx Neurological Disorder: No Hx Respiratory Disorders: No Hx Cardiac Disorders: Yes (HTN) Hx Psychiatric Problems: No Hx Miscellaneous Medical Probl: No (DM , WEIGHT LOSS, HTN ) Hx Alcohol Use: No Hx Substance Use: No Hx Tobacco Use: No Physical Exam Vitals Vital Signs Date Temp Pulse Resp B/P (MAP) Pulse Ox O2 O2 Flow FiO2 Time Delivery Rate 09/18/18 98.3 110 18 143/82 98 11:34 (102) Physical Exam Const: No acute distress Head: Atraumatic Eyes: Normal Conjunctiva ENT: Normal External Ears, Nose and Mouth. Neck: Full range of motion. No meningismus. Resp: Clear to auscultation bilaterally Cardio: Regular rate and rhythm, no murmurs Abd: Soft, non tender, non distended. Normal bowel sounds Skin: No petechiae or rashes Back: No midline or flank tenderness Ext: No cyanosis, or edema Neur: Awake and alert Psych: Normal Mood and Affect Results 24 hrs Laboratory Tests Test 09/18/18 11:33 Bedside Glucose 329 mg/dL Current Medications Medications Dose Sig/Beto Start Time Status Last (Trade) Ordered Route PRN Stop Time Admin Dose Reason Admin Sodium 660 ml @ ONCE ONCE 09/18/18 Chloride 660 mls/hr IV 14:30 09/18/18 15:29 ANITA SOTO MD Sep 18, 2018 14:14
[2018-09-18] MEDS ORDERED: SOD CHLORIDE 0.9% 660 ML IV ONE (14:30)
== END 2018-09-18 15:52 | disposition left against medical advice (07) ==
LOC: E/R 11:19
DX: Z53.21 Procedure and treatment not carried out due to patient leaving prior to being seen by health care provider (principal)
CPT/HCPCS: 82962; J7030